=== PATIENT | male | born 1990 | race Caucasian/White ===

== ENCOUNTER 2019-01-24 15:27 | Emergency (ER) | payer SELFPAY ==
[2019-01-24] MEDS ORDERED: LIDOCAINE 1% MPF 5 ML VIAL ONE (16:12)
[2019-01-24] MEDS ORDERED: TETANUS & DIPHTHERIA TOX,ADULT 0.5 ML VIAL ONE (16:13)
[2019-01-24] MEDS ORDERED: BUPIVACAINE 0.5% PF 10 ML VIAL ONE (16:13)
--- NOTE | 2019-01-24 16:42 | RAD REPORT ---
EXAM DESCRIPTION: RAD - Hand Left 3 View - 01/24/2019 4:32 pm CLINICAL HISTORY: PAIN COMPARISON: <Comparisons> FINDINGS: No fracture or radiopaque foreign body seen. Soft tissue swelling involves the second and fifth fingers.
--- NOTE | 2019-01-24 17:19 | ER ---
Nurse's Notes [facility] Name: Armani Aldridge Age: 28 yrs Sex: Male : 1990 Arrival Date: 01/24/2019 Time: 15:35 Bed 25 Private MD: Diagnosis: Laceration without foreign body of left index finger without damage to nail;Laceration without foreign body of left little finger without damage to nail;Flexor tendon injury to left little finger Presentation: 01/24 15:35 Presenting complaint: Patient states: i was moving a washing machine with my , it tw2 slipped and landined on my LEFT hand, it cut my pointer and pinky finger and cant bend pink finger. Transition of care: patient was not received from another setting of care. Onset of symptoms was January 24, 2019. Risk Assessment: Do you want to hurt yourself or someone else? Patient reports no desire to harm self or others. Initial Sepsis Screen: Does the patient meet any 2 criteria? No. Patient's initial sepsis screen is negative. Does the patient have a suspected source of infection? No. Patient's initial sepsis screen is negative. Care prior to arrival: None. 15:35 Method Of Arrival: Ambulatory tw2 15:35 Acuity: JEANETTE 4 tw2 Triage Assessment: 15:36 General: Appears in no apparent distress. Behavior is calm, cooperative, appropriate tw2 for age. Pain: Complains of pain in left hand. Historical: - Allergies: 15:37 No Known Allergies; tw2 - Home Meds: 15:37 None [Active]; tw2 - PMHx: 15:37 None; tw2 - PSHx: 15:37 None; tw2 - Immunization history:: Last tetanus immunization: 2013. - Social history:: Smoking status: Patient uses tobacco products, smokes one-half pack cigarettes per day. - Ebola Screening: : Patient denies travel to an Ebola-affected area in the 21 days before illness onset. Screenin:40 Abuse screen: Denies threats or abuse. Denies injuries from another. ls4 15:40 Nutritional screening: No deficits noted. Tuberculosis screening: No symptoms or risk ls4 factors identified. Fall Risk None identified. Assessment: 15:40 General: Appears in no apparent distress. Behavior is calm, cooperative. ls4 15:40 Pain: Complains of pain in left hand Pain currently is 1 out of 10 on a pain scale. ls4 Cardiovascular: No deficits noted. Respiratory: No deficits noted. GI: No deficits noted. Derm: Wound noted left index finger and left little finger Wound is each finger has clean edged laceration devyn 3 cm. pt cannot move left little finger. Musculoskeletal: Circulation, motion, and sensation intact. Capillary refill < 3 seconds, Range of motion: limited in left little finger. 16:30 Reassessment: Patient and/or family updated on plan of care and expected duration. Pain ls4 level reassessed. Patient is alert, oriented x 3, equal unlabored respirations, skin warm/dry/pink. 17:15 Reassessment: Patient and/or family updated on plan of care and expected duration. Pain ls4 level reassessed. Patient is alert, oriented x 3, equal unlabored respirations, skin warm/dry/pink. Vital Signs: 15:36 BP 117 / 71; Pulse 89; Resp 18; Temp 98.4(O); Pulse Ox 95% on R/A; Weight 70.31 kg (M); tw2 Height 5 ft. 8 in. (172.72 cm); Pain 1/10; 16:15 BP 111 / 70; Pulse 78; Resp 16; Pulse Ox 98% on R/A; Pain 1/10; ls4 17:15 BP 114 / 72; Pulse 76; Resp 14; Pulse Ox 99% on R/A; Pain 0/10; ls4 15:36 Body Mass Index 23.57 (70.31 kg, 172.72 cm) tw2 ED Course: 15:35 Patient arrived in ED. mr 15:36 Triage completed. tw2 15:36 Arm band placed on. tw2 15:40 Patient has correct armband on for positive identification. Bed in low position. Call ls4 light in reach. Side rails up X 1. 15:40 No provider procedures requiring assistance completed. Patient did not have IV access ls4 during this emergency room visit. 15:45 Calvin Chakraborty FNP-C is PHCP. kb 15:45 Nathan Adler MD is Attending Physician. kb 15:49 Nova Judge RN is Primary Nurse. ls4 15:56 Wound care: to laceration to left first and pinky finger with chlorhexidine and normal dh3 saline. 16:33 Hand Left 3 View XRAY In Process Unspecified. 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 Exp: ls4 04/21/2020. Lot #: [id number]. } {Note: [employer] LOT [id number] 10-20-2020.} Route: IM; Site: left deltoid; 16:36 Follow up: Response: No adverse reaction ls4 17:20 Drug: Lidocaine (1 %) 1 vials {Note: BY CALVIN CHEMICAL EDUCATOR .} Volume: 5 ml; Route: Infiltration;ls4 17:34 Follow up: Response: No adverse reaction ls4 17:20 Drug: Bupivacaine (0.5 %) 1 vials {Note: BY CALVIN CHEMICAL EDUCATOR .} Volume: 10 ml; Route: ls4 Infiltration; 17:34 Follow up: Response: No adverse reaction ls4 Outcome: 17:19 Discharge ordered by . naida 17:35 Discharged to home ambulatory, with significant other. ls4 17:35 Condition: good 17:35 Discharge instructions given to patient, family, Instructed on discharge instructions, follow up and referral plans. Demonstrated understanding of instructions, follow-up care, medications. 17:35 Patient left the ED. ls4 Signatures: Dispatcher [employer] EDMS Calvin Chakraborty, MARK ROSENBAUM-Jaky Ulrich Tara, RN RN 2 [facility] Nova Judge, BYRON RN ls4
--- NOTE | 2019-01-24 17:19 | EDPHYS ---
Physician Documentation [facility] Name: Armani Aldridge Age: 28 yrs Sex: Male : 1990 Arrival Date: 01/24/2019 Time: 15:35 Bed 25 Private MD: ED Physician Nathan Adler HPI: 01/24 15:59 This 28 yrs old Male presents to ER via Ambulatory with complaints of kb Laceration. 15:59 The patient has a laceration related to: moving a washing machine and it cut his kb fingers occurred at home, and there are no complicating factors. The injury was accidental. The laceration(s) is(are) located on the palmar aspect of middle phalanx of left little finger and palmar aspect of middle phalanx of left index finger. Onset: The symptoms/episode began/occurred just prior to arrival. Associated signs and symptoms: The patient has no apparent associated signs or symptoms. The patient has not experienced similar symptoms in the past. The patient has not recently seen a physician. Pt reports he was moving a washing machine and it cut his first and pinky finger on left hand. Reports he is unable to move pinky finger at this time. . Historical: - Allergies: 15:37 No Known Allergies; tw2 - Home Meds: 15:37 None [Active]; tw2 - PMHx: 15:37 None; tw2 - PSHx: 15:37 None; tw2 - Immunization history:: Last tetanus immunization: 2013. - Social history:: Smoking status: Patient uses tobacco products, smokes one-half pack cigarettes per day. - Ebola Screening: : Patient denies travel to an Ebola-affected area in the 21 days before illness onset. ROS: 15:57 Constitutional: Negative for fever, chills, and weight loss, ENT: Negative for injury, kb pain, and discharge, Neck: Negative for injury, pain, and swelling, Cardiovascular: Negative for chest pain, palpitations, and edema, Respiratory: Negative for shortness of breath, cough, wheezing, and pleuritic chest pain, Abdomen/GI: Negative for abdominal pain, nausea, vomiting, diarrhea, and constipation, Neuro: Negative for headache, weakness, numbness, tingling, and seizure. 15:57 MS/extremity: Positive for injury or acute deformity, decreased range of motion, laceration, pain, of the left index finger and left little finger. Exam: 15:58 Constitutional: This is a well developed, well nourished patient who is awake, alert, kb and in no acute distress. Head/Face: Normocephalic, atraumatic. Neck: Trachea midline, no thyromegaly or masses palpated, and no cervical lymphadenopathy. Supple, full range of motion without nuchal rigidity, or vertebral point tenderness. No Meningismus. Chest/axilla: Normal chest wall appearance and motion. Nontender with no deformity. No lesions are appreciated. Cardiovascular: Regular rate and rhythm with a normal S1 and S2. No gallops, murmurs, or rubs. Normal PMI, no JVD. No pulse deficits. Respiratory: Lungs have equal breath sounds bilaterally, clear to auscultation and percussion. No rales, rhonchi or wheezes noted. No increased work of breathing, no retractions or nasal flaring. Abdomen/GI: Soft, non-tender, with normal bowel sounds. No distension or tympany. No guarding or rebound. No evidence of tenderness throughout. Neuro: Awake and alert, GCS 15, oriented to person, place, time, and situation. Cranial nerves II-XII grossly intact. Motor strength 5/5 in all extremities. Sensory grossly intact. Cerebellar exam normal. Normal gait. 15:58 Skin: injury, laceration(s), the wound is approximately 0.5 cm(s), of the palmar aspect of middle phalanx of left index finger, the second wound is approximately 1 cm(s), of the palmar aspect of middle phalanx of left little finger, that can be described as clean, no foreign body, linear, without bleeding. 15:59 Musculoskeletal/extremity: Extremities: grossly normal except: noted in the palmar kb aspect of middle phalanx of left little finger and palmar aspect of middle phalanx of left index finger: laceration, pain, noted in the left little finger: decreased ROM. Vital Signs: 15:36 BP 117 / 71; Pulse 89; Resp 18; Temp 98.4(O); Pulse Ox 95% on R/A; Weight 70.31 kg (M); tw2 Height 5 ft. 8 in. (172.72 cm); Pain 1/10; 16:15 BP 111 / 70; Pulse 78; Resp 16; Pulse Ox 98% on R/A; Pain 1/10; ls4 17:15 BP 114 / 72; Pulse 76; Resp 14; Pulse Ox 99% on R/A; Pain 0/10; ls4 15:36 Body Mass Index 23.57 (70.31 kg, 172.72 cm) tw2 Procedures: 16:45 Nerve block: (digital) of palmar aspect of proximal phalanx of left index finger kb Medication: Lidocaine 1% without epinephrine Marcaine 0.5%, Amount: 3 mls were injected, Effect: the patient has resolution of the pain, Set up for procedure. Performed by Calvin FLORES Patient tolerated well. Nerve block: (digital) of palmar aspect of proximal phalanx of left little finger Medication: Lidocaine 1% without epinephrine Marcaine 0.5%, Amount: 3 mls were injected, Effect: the patient has resolution of the pain, Set up for procedure. Performed by Calvin FLORES Patient tolerated well. Laceration: 17:20 Wound Repair of 0.5cm ( 0.2in ) subcutaneous laceration to palmar aspect of middle kb phalanx of left index finger. Linear shaped.. Distal neuro/vascular/tendon intact. Anesthesia: Digital block administered with 1% lidocaine. Wound prep: Extensive cleansing with hibiclenz by highway engineering technician, Wound irrigation with saline by highway engineering technician by pr. Skin closed with 2 5-0 Prolene using interrupted sutures and sterile technique. Dressed with Neosporin, bandaid. Patient tolerated well. 17:20 Wound Repair of 1cm ( 0.4in ) subcutaneous laceration to palmar aspect of middle kb phalanx of left little finger. Linear shaped.. Neuro:Intact distal to wound.. Vascular:Intact distal to wound. Tendon:Impaired function distal to wound. Anesthesia: Digital block administered with 1% lidocaine. Wound prep: Extensive cleansing with hibiclenz by highway engineering technician, Wound irrigation with saline by highway engineering technician by me. Skin closed with 2 5-0 Prolene using interrupted sutures and sterile technique. Dressed with Neosporin, bandaid. Patient tolerated well. MDM: 15:46 Patient medically screened. kb 15:59 Data reviewed: vital signs, nurses notes. Data interpreted: Pulse oximetry: on room air kb is 95 %. Interpretation: normal. 17:21 Counseling: I had a detailed discussion with the patient and/or guardian regarding: the kb historical points, exam findings, and any diagnostic results supporting the discharge/admit diagnosis, radiology results, the need for outpatient follow up, a family practitioner, to return to the emergency department if symptoms worsen or persist or if there are any questions or concerns that arise at home. 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 Exp: ls4 04/21/2020. Lot #: [id number]. } {Note: [employer] LOT [id number] 10-20-2020.} Route: IM; Site: left deltoid; 16:36 Follow up: Response: No adverse reaction ls4 17:20 Drug: Lidocaine (1 %) 1 vials {Note: BY CALVIN JACKSON .} Volume: 5 ml; Route: Infiltration;ls4 17:34 Follow up: Response: No adverse reaction ls4 17:20 Drug: Bupivacaine (0.5 %) 1 vials {Note: BY CALVIN JACKSON .} Volume: 10 ml; Route: ls4 Infiltration; 17:34 Follow up: Response: No adverse reaction ls4 Disposition: 01/25 07:46 Co-signature as Attending Physician, Nathan Adler MD I agree with the assessment and allison plan of care. Disposition: 01/24/19 17:19 Discharged to Home. Impression: Laceration without foreign body of left index finger without damage to nail, Laceration without foreign body of left little finger without damage to nail, Flexor tendon injury to left little finger . - Condition is Stable. - Discharge Instructions: Tendon Repair, Laceration Care, Adult, [id number]. - Medication Reconciliation Form, Thank You Letter, Antibiotic Education, Prescription Opioid Use form. - Follow up: Emergency Department; When: As needed; Reason: Worsening of condition. Follow up: Private Physician; When: 2 - 3 days; Reason: Recheck today's complaints, Continuance of care, Re-evaluation by your physician. Signatures: Dispatcher [employer] Calvin Murillo, ILSA-Rajni ROSENBAUM-Nathan Zaldivar MD MD cha Wise, Tara, RN RN tw2 Nova Judge RN RN ls4 Corrections: (The following items were deleted from the chart) 01/24 17:35 17:19 01/24/2019 17:19 Discharged to Home. Impression: Laceration without foreign body ls4 of left index finger without damage to nail; Laceration without foreign body of left little finger without damage to nail; Flexor tendon injury to left little finger . Condition is Stable. Forms are Medication Reconciliation Form, Thank You Letter, Antibiotic Education, Prescription Opioid Use. Follow up: Emergency Department; When: As needed; Reason: Worsening of condition. Follow up: Private Physician; When: 2 - 3 days; Reason: Recheck today's complaints, Continuance of care, Re-evaluation by your physician. kb
== END 2019-01-24 17:35 | disposition home or self-care (01) ==
LOC: ER 15:27
PROC: 0JQK0ZZ Repair Left Hand Subcutaneous Tissue and Fascia, Open Approach (ICD-10-PCS; principal; 2019-01-24)
DX: S61.217A Laceration without foreign body of left little finger without damage to nail, initial encounter (principal); S56.108A Unspecified injury of flexor muscle, fascia and tendon of left little finger at forearm level, initial encounter; W31.89XA Contact with other specified machinery, initial encounter; Y93.89 Activity, other specified; Y92.009 Unspecified place in unspecified non-institutional (private) residence as the place of occurrence of the external cause; Z23 Encounter for immunization; F17.210 Nicotine dependence, cigarettes, uncomplicated
CPT/HCPCS: 64450; 90471; 90714; 99283